=== PATIENT | male | born 1990 | race Caucasian/White ===

== ENCOUNTER 2017-03-09 16:34 | Emergency (ER) | payer OTHER ==
[~2017-03-09] VITALS: Wt 97.5 kg
[2017-03-09 17:06] LABS: BASO # 0.1 10*3/uL (0.0-0.1); BASO % 0.6 % (0.0-1.0); EOS # 0.1 10*3/uL (0.0-0.4); EOS % 1.5 % (1.0-4.0); HEMATOCRIT 49.2 % (42.0-52.0); HEMOGLOBIN 16.6 g/dl (14.0-18.0); LYMPH # 2.5 10*3/uL (1.3-4.4); LYMPH % 29.9 % (27.0-41.0); MEAN CELL VOLUME 89.8 fl (80.0-94.0); MEAN CORPUSCULAR HGB 30.3 pg (27.0-31.0); MEAN CORPUSCULAR HGB CONC 33.7 g/dl (33.0-37.0); MEAN PLATELET VOLUME 10.3 fl (9.6-12.3); MONO # 0.5 10*3/uL (0.1-1.0); MONO % 6.1 % (3.0-9.0); NEUT # 5.2 10*3/uL (2.3-7.9); NEUT % 61.7 % (47.0-73.0); PLATELET COUNT AUTOMATED 192 10*3/uL (130-400); RED BLOOD COUNT 5.48 10*6/uL (4.50-5.90); RED CELL DISTRI WIDTH 13.6 % (0-14.5); WHITE BLOOD COUNT 8.4 10*3/uL (4.8-10.8)
[2017-03-09 17:18] LABS: BILIRUBIN NEGATIVE (NEGATIVE); BLOOD 3+ (NEGATIVE); CLARITY SL CLOUDY (CLEAR); COLOR YELLOW (YELLOW); GLUCOSE NEGATIVE (NEGATIVE); KETONE NEGATIVE (NEGATIVE); LEUKO ESTERASE NEGATIVE (NEGATIVE); NITRITE NEGATIVE (NEGATIVE); PROTEIN TRACE (NEGATIVE); SPECIFIC GRAVITY >= 1.030 (1.005-1.030)
[2017-03-09 17:21] LABS: ALBUMIN 4.3 gm/dl (3.1-4.5); ALKALINE PHOSPHATASE 78 U/L (45-117); BILIRUBIN, TOTAL 0.4 mg/dl (0.2-1.0); BUN 14 mg/dl (7-24); CARBON DIOXIDE 25 mmol/L (21-32); CHLORIDE 108 mmol/L (98-107); EST GLOM FILT AFRICAN AMERICAN > 60 ml/min; GLUCOSE 118 mg/dL (65-99); POTASSIUM 3.9 mmol/L (3.5-5.1); SGOT/AST 14 IU/L (3-35); SGPT/ALT 31 U/L (12-78); SODIUM 143 mmol/L (136-145); TOTAL PROTEIN 6.8 gm/dL (6.4-8.2)
[2017-03-09 17:24] LABS: C-REACTIVE PROTEIN < 0.29 MG/DL (0-0.3)
[2017-03-09 17:28] LABS: BACTERIA 1+; RBC 16-20 rbc/hpf (0-2)
[2017-03-09 17:29] LABS: MUCOUS TRACE; URINE REFLEX COMMENT YES (NO)
== END 2017-03-09 20:23 | disposition home or self-care (01) ==
LOC: ED 16:34
PROVIDERS: Registered Nurse
DX: R10.30 Lower abdominal pain, unspecified (principal); N50.811 Right testicular pain; F17.200 Nicotine dependence, unspecified, uncomplicated

== ENCOUNTER 2025-04-20 03:11 | Emergency (ER) | payer SELFPAY ==
[~2025-04-20] VITALS: Ht 180.3 cm; Wt 99.8 kg
[2025-04-20] MEDS ORDERED: AMOXICILLIN 500 MG CAP PO ONE (03:45)
[2025-04-20] MEDS ORDERED: SERTRALINE HYDR50 MG PO (03:47)
[2025-04-20] MEDS ORDERED: BUPRENORPHINE-1 EAC1 SL (03:47)
[2025-04-20] MEDS ORDERED: AMOXICILLIN500 M2 PO (04:40)
== END 2025-04-20 04:37 | disposition home or self-care (01) ==
LOC: ED 03:11
DX: K04.7 Periapical abscess without sinus (principal)